=== PATIENT | male | born 1945 | race Caucasian/White ===

== ENCOUNTER → 2016-09-14 | Outpatient (REF) | payer MEDICARE, MEDICAID ==
[2016-09-22 00:08] LABS: ALDOSTERONE 8.4 ng/dL (0.0-30.0)
== END ==
LOC: M LAB REF 13:42
PROVIDERS: ATTEND Internal Medicine Nephrology
DX: I15.0 Renovascular hypertension (principal)

== ENCOUNTER → 2016-09-17 | Outpatient (REF) | payer MEDICARE, MEDICAID ==
[2016-09-22 00:08] LABS: DOPAMINE 119 ug/24 hr (0-510); EPINEPHRINE 3 ug/24 hr (0-20); NOREPINEPHRINE 22 ug/24 hr (0-135); NOREPINEPHRINE TOTAL URINE 14 ug/L (Undefined)
== END ==
LOC: M LAB REF 13:25
PROVIDERS: ATTEND Internal Medicine Nephrology
DX: I15.0 Renovascular hypertension (principal)

== ENCOUNTER → 2016-12-07 | Outpatient (CLI) | payer MEDICARE, MEDICAID ==
--- NOTE | 2016-12-07 12:20 | REP ---
Clinical: Shortness of breath . Comparison: 04/22/2014 . Technique: PA and lateral. Findings: The mediastinum and cardiac silhouette are normal. The lung guerrero are clear and without acute consolidation, effusion, or pneumothorax. The skeletal structures are intact and normal. Impression: 1. No acute cardiopulmonary process. Signed by Will Jimenez MD 12/07/2016 12:11 P
== END ==
LOC: M WUC 11:29
PROVIDERS: ATTEND Nurse Practitioner Family
DX: R06.02 Shortness of breath (principal); J06.9 Acute upper respiratory infection, unspecified

== ENCOUNTER → 2019-05-06 | Outpatient (REF) | payer MEDICARE, MEDICAID | LOC: M LAB REF 16:33 | PROVIDERS: ATTEND Nurse Practitioner Adult Health | DX: N18.4 Chronic kidney disease, stage 4 (severe) (principal) ==